=== PATIENT | female | born 1985 | race Two or more races ===

== ENCOUNTER 2016-08-11 12:25 | Outpatient (CLI) | payer MEDICARE, OTHER ==
[~2016-08-11 12:25] MED LIST: AMIODARONE HCL100 MG ORAL; ASPIR 8181 MG ORAL; DIGOXIN ELIX0.125 MG PO; IBUPROFEN600 MG ORAL; METOPROLOL TAR100 M1 ORAL; NORCO 5-325 TA1 EACH ORAL
[2016-08-11 13:02] LABS: EOSINOPHILS % (AUTO) 0.9 % (0.0-3.0); LYMPHOCYTES % (AUTO) 27.2 % (20.0-45.0); MEAN CORPUSCULAR HEMOGLOBIN 28.2 PG (27.0-31.0); MEAN CORPUSCULAR HGB CONC 31.6 G/DL (32.0-36.0); MEAN CORPUSCULAR VOLUME 89 FL (80-99); MEAN PLATELET VOLUME 10.1 FL (6.5-10.1); MONOCYTES % (AUTO) 6.7 % (1.0-10.0); NEUTROPHILS % (AUTO) 64.3 % (45.0-75.0); PLATELET COUNT 263 K/UL (150-450); RED BLOOD COUNT 4.47 M/UL (4.20-5.40); RED CELL DISTRIBUTION WIDTH 13.2 % (11.6-14.8); WHITE BLOOD COUNT 5.6 K/UL (4.8-10.8)
[2016-08-11 13:22] LABS: ALANINE AMINOTRANSFERASE 22 U/L (3-33); ANION GAP 14 (5-15); ASPARTATE AMINO TRANSFERASE 18 U/L (5-40); CALCIUM 9.3 mg/dL (8.6-10.2); CARBON DIOXIDE 22 mEQ/L (20-30); CHLORIDE 101 mEQ/L (98-107); CHOLESTEROL 160 mg/dL (< 200); CHOLESTEROL/HDL RATIO 4.6 (3.3-4.4); CREATININE 0.7 mg/dL (0.5-0.9); GLOMERULAR FILTRATION RATE > 60 mL/min (>60); HEMOLYSIS 1; LDL CHOLESTEROL (CALC.) 91 mg/dL (60-99); MAGNESIUM 1.7 mg/dL (1.7-2.5); PHOSPHORUS 3.2 mg/dL (2.5-4.8); POTASSIUM 4.5 mEQ/L (3.4-4.9); SODIUM 137 mEQ/L (135-145); TOTAL PROTEIN 7.2 g/dL (6.6-8.7)
== END 2016-08-11 13:15 | disposition home or self-care (01) ==
LOC: LAB 12:25
DX: G47.33 Obstructive sleep apnea (adult) (pediatric) (principal); E66.9 Obesity, unspecified; E03.9 Hypothyroidism, unspecified; I49.9 Cardiac arrhythmia, unspecified
CPT/HCPCS: 36415; 80053; 80061; 82306; 82607; 82746; 83735; 84100; 84436; 84443; 84480; 85025

== ENCOUNTER 2017-01-19 15:48 | Outpatient (CLI) | payer MEDICARE, OTHER ==
[2017-01-19 16:22] LABS: BASOPHILS % (AUTO) 1.2 % (0.0-2.0); EOSINOPHILS % (AUTO) 1.1 % (0.0-3.0); LYMPHOCYTES % (AUTO) 36.4 % (20.0-45.0); MEAN CORPUSCULAR HEMOGLOBIN 29.3 PG (27.0-31.0); MEAN CORPUSCULAR HGB CONC 32.1 G/DL (32.0-36.0); MEAN CORPUSCULAR VOLUME 92 FL (80-99); MEAN PLATELET VOLUME 8.2 FL (6.5-10.1); MONOCYTES % (AUTO) 7.1 % (1.0-10.0); NEUTROPHILS % (AUTO) 54.2 % (45.0-75.0); PLATELET COUNT 231 K/UL (150-450); RED BLOOD COUNT 4.11 M/UL (4.20-5.40); RED CELL DISTRIBUTION WIDTH 12.3 % (11.6-14.8); WHITE BLOOD COUNT 6.8 K/UL (4.8-10.8)
[2017-01-19 16:39] LABS: ALANINE AMINOTRANSFERASE 33 U/L (12-78); ALBUMIN/GLOBULIN RATIO 0.8 (1.0-2.7); ANION GAP 7 mmol/L (5-15); ASPARTATE AMINO TRANSFERASE 20 U/L (15-37); CALCIUM 9.2 MG/DL (8.5-10.1); CARBON DIOXIDE 24 MMOL/L (21-32); CHLORIDE 106 MMOL/L (98-107); GLOMERULAR FILTRATION RATE > 60 mL/min (>60); POTASSIUM 4.4 MMOL/L (3.5-5.1); SODIUM 137 MMOL/L (136-145); TOTAL PROTEIN 7.9 G/DL (6.4-8.2)
[2017-01-19 16:40] LABS: INR 0.9 (0.9-1.1); PROTHROMBIN TIME 9.6 SEC (9.30-11.50)
== END 2017-01-19 17:48 | disposition home or self-care (01) ==
LOC: LAB 15:48
DX: E78.2 Mixed hyperlipidemia (principal)
CPT/HCPCS: 36415; 80053; 85025; 85610; 85730

== ENCOUNTER 2017-03-16 15:16 | Emergency (ER) | payer MEDICARE, OTHER ==
[~2017-03-16] VITALS: Ht 167.6 cm; Wt 81.6 kg
[2017-03-16 15:20] VITALS: BP 149/86
[2017-03-16] MEDS ORDERED: traMADol 50mg tab ORAL ONE (15:30)
[2017-03-16] MEDS ORDERED: TYLENOL EXTRA500 MG ORAL (16:19)
[2017-03-16 16:28] VITALS: BP 124/77
--- NOTE | 2017-03-16 17:18 | Diagnostic Imaging Report ---
Indication: PAIN Technique: 3 views of the left knee Comparison: None Findings:Fractures. No dislocations. There are small medial compartmental osteophytes. Joint spaces are preserved. No suprapatellar effusion Impression:No acute process
--- NOTE | 2017-03-16 17:19 | Diagnostic Imaging Report ---
Indication: PAIN Technique: 3 views of the left shoulder Comparison: 01/27/2011 Findings: There is a pacemaker in place. No acute fractures. No dislocations. The joint spaces are preserved. Findings are unchanged Impression:No acute process
--- NOTE | 2017-03-16 21:29 | Emergency Room Report ---
History of Present Illness General Chief Complaint: Upper Extremity Injury Source: Patient, Family Member, Caregiver Present Illness HPI The patient is a 31-year-old female presenting with mother for pain after falling today. Patient has developmental delay and is unable to provide information. The mother states that the patient tripped on an elevated format and fell onto the left shoulder and left knee. She denies that she hit her head or had loss of consciousness. She denies any other injury for the patient or symptoms Allergies: Coded Allergies: AMOXICILLIN (Unverified Allergy, Unknown, 10/16/13) IODINE (Unverified Allergy, Unknown, 03/16/17) Patient History Past Medical History: see triage record Pertinent Family History: none Last Menstrual Period: One week ago Now: No Reviewed Nursing Documentation: PMH: Agreed, PSxH: Agreed Nursing Documentation-PMH Hx Cardiac Problems: Yes - arrythmia Hx Hypertension: Yes Hx Pacemaker: Yes Hx Cancer: No Hx Gastrointestinal Problems: No Review of Systems All Other Systems: negative except mentioned in HPI Physical Exam Vital Signs Date Time Temp Pulse Resp B/P (MAP) Pulse Ox O2 Delivery O2 Flow Rate FiO2 03/16/17 15:13 97.7 88 18 149/86 99 Room Air Sp02 EP Interpretation: reviewed, normal General Appearance: no apparent distress, alert, GCS 15, non-toxic Head: normocephalic, atraumatic Eyes: bilateral eye normal inspection, bilateral eye PERRL Neck: normal inspection, full range of motion, no bony tend Musculoskeletal: normal inspection, normal range of motion, tender - L anterior knee. L anterior deltoid Neurologic: alert, responsive, motor strength/tone normal, sensory intact Psychiatric: mood/affect normal Skin: other - eecchymosis L knee Medical Decision Making PA Attestation Dr. Fierro is my supervising physician. Patient management was discussed with my supervising physician Diagnostic Impression: Primary Impression: Knee pain, left Qualified Codes: M25.562 - Pain in left knee Additional Impression: Shoulder pain, left Qualified Codes: M25.512 - Pain in left shoulder ER Course The patient is a 31-year-old female presenting with mother for pain after falling today Ddx considered include but not limited to sprain/strain, fracture, contusion Physical exam: No apparent distress Left knee: There is slight ecchymosis to the anterior aspect. Tenderness to palpation over the patella. No deformity. Normal gait. Full active range of motion intact. Left shoulder: Full AROM intact. No ecchymosis. TTP over anterior aspect X-ray of the left knee and left shoulder are both unremarkable. She'll be discharged with pain medication and will followup with her primary doctor. Other X-Ray Diagnostic Results Other X-Ray Diagnostic Results #1: X-Ray ordered: L shoulder # of Views/Limited Vs Complete: 3 View Indication: Pain EP Interpretation: Yes PA Xray: Interpretation reviewed, by supervising MD, and agrees with findings. Interpretation: no dislocation, no soft tissue swelling, no fractures Impression: No acute disease Electronically Signed by: Eloy Cisneros PA-C Other X-Ray Diagnostic Results #2: X-Ray ordered: L knee # of Views/Limited Vs Complete: 3 View Indication: Pain EP Interpretation: Yes PA Xray: Interpretation reviewed, by supervising MD, and agrees with findings. Interpretation: no dislocation, no soft tissue swelling, no fractures Impression: No acute disease Electronically Signed by: Eloy Cisneros PA-C Last Vital Signs Date Time Temp Pulse Resp B/P (MAP) Pulse Ox O2 Delivery O2 Flow Rate FiO2 03/16/17 16:28 74 18 124/77 99 Room Air 03/16/17 15:20 97.7 Status: improved Disposition: HOME, SELF-CARE Condition: Improved Scripts Acetaminophen* (TYLENOL EXTRA STRENGTH*) 500 Mg Tablet 500 MG ORAL Q8H Y for Prn Headache/Temp > 101, #30 TAB 0 Refills Prov: ELOY CISNEROS 03/16/17 Patient Instructions: Muscle Pain, Adult, RICE for Routine Care of Injuries Additional Instructions: I discussed my findings with the patient. All questions and concerns have been answered. Treatment and medication compliance have been addressed. I advised the patient that they need to follow up with PMD in 3-5 days. Return to ED if pain remains or worsens, numbness or tingling occurs, new rash is noticed, fever is noticed, or if needed for any reason. Patient verbalized understanding of discharge instructions. ELOY CISNEROS Mar 16, 2017 21:29
== END 2017-03-16 16:27 | disposition home or self-care (01) ==
LOC: EDBD 15:16 → EMR 15:42
DX: M25.562 Pain in left knee (principal); M25.512 Pain in left shoulder; I10 Essential (primary) hypertension; I49.9 Cardiac arrhythmia, unspecified; Z95.0 Presence of cardiac pacemaker; Z88.1 Allergy status to other antibiotic agents; Z91.041 Radiographic dye allergy status
CPT/HCPCS: 99284

== ENCOUNTER 2018-07-20 09:55 | Outpatient (CLI) | payer MEDICARE, OTHER ==
[~2018-07-20 09:55] MED LIST changes: +TYLENOL EXTRA500 MG ORAL
[2018-07-20 10:31] LABS: BASOPHILS % (AUTO) 0.7 % (0.0-2.0); EOSINOPHILS % (AUTO) 1.3 % (0.0-3.0); HEMATOCRIT 40.1 % (37.0-47.0); HEMOGLOBIN 13.3 G/DL (12.0-16.0); LYMPHOCYTES % (AUTO) 23.4 % (20.0-45.0); MEAN CORPUSCULAR VOLUME 88 FL (80-99); MONOCYTES % (AUTO) 5.1 % (1.0-10.0); NEUTROPHILS % (AUTO) 69.5 % (45.0-75.0); PLATELET COUNT 242 K/UL (150-450); RED BLOOD COUNT 4.55 M/UL (4.20-5.40); RED CELL DISTRIBUTION WIDTH 12.9 % (11.6-14.8); WHITE BLOOD COUNT 8.4 K/UL (4.8-10.8)
[2018-07-20 10:55] LABS: ALANINE AMINOTRANSFERASE 43 U/L (12-78); ALBUMIN 3.7 G/DL (3.4-5.0); ALBUMIN/GLOBULIN RATIO 0.8 (1.0-2.7); ALKALINE PHOSPHATASE 89 U/L (46-116); ANION GAP 10 mmol/L (5-15); ASPARTATE AMINO TRANSFERASE 21 U/L (15-37); BILIRUBIN,TOTAL 0.4 MG/DL (0.2-1.0); BLOOD UREA NITROGEN 12 mg/dL (7-18); CALCIUM 9.7 MG/DL (8.5-10.1); CARBON DIOXIDE 26 MMOL/L (21-32); CHLORIDE 103 MMOL/L (98-107); CHOLESTEROL 173 MG/DL (< 200); CREATININE 0.7 MG/DL (0.55-1.30); HDL CHOLESTEROL 31 MG/DL (40-60); PHOSPHORUS 3.2 MG/DL (2.5-4.9); POTASSIUM 3.8 MMOL/L (3.5-5.1); SODIUM 138 MMOL/L (136-145); TRIGLYCERIDES 207 MG/DL (30-150)
== END 2018-07-20 11:55 | disposition home or self-care (01) ==
LOC: LAB 09:55
DX: G80.9 Cerebral palsy, unspecified (principal); Z83.3 Family history of diabetes mellitus; E66.9 Obesity, unspecified; I49.5 Sick sinus syndrome; Z95.0 Presence of cardiac pacemaker; Z88.0 Allergy status to penicillin; Z91.041 Radiographic dye allergy status
CPT/HCPCS: 36415; 80053; 80061; 80162; 82306; 82607; 82747; 83036; 83735; 84100; 84443; 85025

== ENCOUNTER 2019-05-07 17:09 | Emergency (ER) | payer MEDICARE, OTHER ==
[~2019-05-07] VITALS: Ht 165.1 cm; Wt 81.6 kg
[2019-05-07 17:50] VITALS: BP 114/57
--- NOTE | 2019-05-07 17:50 | NUR ---
ED Nurse Note: Pt brought into ED w/ laceration upper L forehead. Pt fell approximately 1700 and hit the head on a table. Pt has a pacemaker L chest. Pt also has mental retardation. She is alert and orientedx4, amblatory, family is at bedside. Pt is set up on monitor.
[2019-05-07] MEDS ORDERED: Acetaminophen 500mg (ES) tab ORAL ONE (18:00)
--- NOTE | 2019-05-07 18:16 | Emergency Room Report ---
History of Present Illness General Chief Complaint: Head Injury Source: Patient, Family Member Present Illness HPI Patient presents with trauma to the left side of the forehead Patient was reported to have tripped over a dresser and fell to the ground on the left side Denies any lapse of consciousness she does have 10 out of 10 pain Denies any visual change denies any neck pain denies any focal weakness Denies any vomiting or diarrhea Allergies: Coded Allergies: AMOXICILLIN (Unverified Allergy, Unknown, 10/16/13) IODINE (Unverified Allergy, Unknown, 03/16/17) Patient History Past Medical History: see triage record Last Menstrual Period: 04/25/2019 Now: No : 0 Para: 0 Reviewed Nursing Documentation: PMH: Agreed; PSxH: Agreed Nursing Documentation-PMH Hx Cardiac Problems: Yes - arrythmia Hx Hypertension: Yes Hx Pacemaker: Yes Hx Cancer: No Hx Gastrointestinal Problems: No Review of Systems All Other Systems: negative except mentioned in HPI Physical Exam Vital Signs Date Time Temp Pulse Resp B/P (MAP) Pulse Ox O2 Delivery O2 Flow Rate FiO2 05/07/19 17:37 98.1 74 18 116/59 (78) 94 Room Air Sp02 EP Interpretation: reviewed, normal General Appearance: well appearing, mild distress - Uncomfortable with pain to the left forehead Head: other - 3 x 2 cm hematoma left forehead small associated 1 cm laceration Eyes: bilateral eye PERRL ENT: hearing grossly normal, EOM grossly intact Neck: supple, no bony tend Respiratory: lungs clear, no respiratory distress, no retraction Cardiovascular #1: regular rate, rhythm Gastrointestinal: non tender, soft Genitourinary: no CVA tenderness Musculoskeletal: normal inspection Neurologic: alert, oriented x3 Psychiatric: anxious Skin: other - As above with associated hematoma left temporal forehead area Lymphatic: no adenopathy Procedures Laceration/Wound Repair Laceration/Wound Repair : Consent: Verbal Wound Location: head Wound's Depth, Shape: superficial Wound Length (cm): 1 Wound Explored: clean Betadine Prep?: Yes Wound Repaired With: Dermabond Layer Closure?: No Patient Tolerated: Well Complications: None Progress The area appears fairly well approximated and at this time Dermabond was used for closure with appropriate approximation Medical Decision Making Diagnostic Impression: Primary Impression: Acute head injury ER Course Given the history and presentation given the trauma patient had CT imaging obtained No obvious acute process is seen patient does have some developmental delay which makes Some of the exam difficult with multiple repeat attempts nevertheless the patient's mom is able to assist and Closure is made with Dermabond Patient tolerated well and will have close outpatient follow-up CT/MRI/US Diagnostic Results CT/MRI/US Diagnostic Results : Impression CT head no acute hemorrhage Last Vital Signs Date Time Temp Pulse Resp B/P (MAP) Pulse Ox O2 Delivery O2 Flow Rate FiO2 05/07/19 17:37 98.1 74 18 116/59 (78) 94 Room Air Status: improved Disposition: HOME, SELF-CARE Condition: Improved Scripts Ibuprofen* (MOTRIN*) 600 Mg Tablet 600 MG ORAL Q8H PRN for For Pain, #20 TAB 0 Refills Prov: Gary Gibbons DO 05/07/19 Additional Instructions: Patient is provided with the discharge instructions notified to follow up with primary doctor in the next 2-3 days otherwise return to the er with any worsening symptoms. Please note that this report is being documented using DRAGON technology. This can lead to erroneous entry secondary to incorrect interpretation by the dictating instrument. Gary Gibbons DO May 07, 2019 18:16
--- NOTE | 2019-05-07 18:40 | Diagnostic Imaging Report ---
EXAM: CT Head Without Intravenous Contrast CLINICAL HISTORY: TRAUMA TECHNIQUE: Axial computed tomography images of the head/brain without intravenous contrast. CTDI is 240 mGy and DLP is 3494.8 mGy-cm. One or more of the following dose reduction techniques were used: automated exposure control, adjustment of the mA and/or kV according to patient size, use of iterative reconstruction technique. COMPARISON: No relevant prior studies available. FINDINGS: Limitations: Limited by motion. Brain: No gross intracranial hemorrhage. Ventricles: No ventriculomegaly. Bones/joints: No obvious fracture. Soft tissues: Unremarkable. Sinuses: No acute sinusitis. Mastoid air cells: No mastoid effusion. Other findings: No computer game designer image. IMPRESSION: Motion. No gross intracranial hemorrhage. No obvious skull fracture.
--- NOTE | 2019-05-07 19:10 | NUR ---
ED Nurse Note: Received report from Gely SALGUERO. Pt alert and oriented, verbally responsive. Not in any distress. Mother at bedside.
[2019-05-07] MEDS ORDERED: IBUPROFEN600 MG ORAL (19:14)
[2019-05-07 19:36] VITALS: BP 118/70
--- NOTE | 2019-05-07 19:36 | NUR ---
ED Nurse Note: Pt cleared by ERMD for discharge. DC instructions/prescription was given and explained to pt and parent verbalized understanding of teachings. All medical deviecs such as ID band removed. Pt is AAO x4, ambulatory and left with all personal belongings. Accompanied home by her mother.
== END 2019-05-07 19:36 | disposition home or self-care (01) ==
LOC: EMR 18:00
DX: S09.90XA Unspecified injury of head, initial encounter (principal); W01.0XXA Fall on same level from slipping, tripping and stumbling without subsequent striking against object, initial encounter; Y92.9 Unspecified place or not applicable; Z88.0 Allergy status to penicillin; Z91.041 Radiographic dye allergy status; I10 Essential (primary) hypertension; Z95.0 Presence of cardiac pacemaker
CPT/HCPCS: 70450; 99284

== ENCOUNTER → 2020-01-09 | Outpatient (CLI) | payer MEDICARE, OTHER ==
[2020-01-09 13:09] LABS: BASOPHILS % (AUTO) 1.3 % (0.0-2.0); EOSINOPHILS % (AUTO) 0.3 % (0.0-3.0); HEMATOCRIT 36.6 % (37.0-47.0); HEMOGLOBIN 12.6 G/DL (12.0-16.0); MEAN CORPUSCULAR VOLUME 88 FL (80-99); MONOCYTES % (AUTO) 5.8 % (1.0-10.0); NEUTROPHILS % (AUTO) 66.6 % (45.0-75.0); PLATELET COUNT 241 K/UL (150-450); RED BLOOD COUNT 4.16 M/UL (4.20-5.40); RED CELL DISTRIBUTION WIDTH 12.5 % (11.6-14.8); WHITE BLOOD COUNT 8.1 K/UL (4.8-10.8)
[2020-01-09 13:47] LABS: ALANINE AMINOTRANSFERASE 36 U/L (12-78); ALBUMIN 3.4 G/DL (3.4-5.0); ALBUMIN/GLOBULIN RATIO 0.8 (1.0-2.7); ALKALINE PHOSPHATASE 63 U/L (46-116); ANION GAP 7 mmol/L (5-15); ASPARTATE AMINO TRANSFERASE 16 U/L (15-37); BILIRUBIN,TOTAL 0.3 MG/DL (0.2-1.0); BLOOD UREA NITROGEN 15 mg/dL (7-18); CALCIUM 9.4 MG/DL (8.5-10.1); CARBON DIOXIDE 23 MMOL/L (21-32); CHLORIDE 109 MMOL/L (98-107); CHOLESTEROL 154 MG/DL (< 200); CREATININE 0.8 MG/DL (0.55-1.30); HDL CHOLESTEROL 32 MG/DL (40-60); PHOSPHORUS 3.1 MG/DL (2.5-4.9); POTASSIUM 4.3 MMOL/L (3.5-5.1); SODIUM 139 MMOL/L (136-145); TRIGLYCERIDES 257 MG/DL (30-150)
== END | disposition home or self-care (01) ==
LOC: LAB 12:29
DX: I48.91 Unspecified atrial fibrillation (principal); Z95.810 Presence of automatic (implantable) cardiac defibrillator; E66.9 Obesity, unspecified; Z83.3 Family history of diabetes mellitus; Z82.49 Family history of ischemic heart disease and other diseases of the circulatory system
CPT/HCPCS: 36415; 80053; 80061; 80162; 82306; 82607; 82746; 83036; 83735; 84100; 84443; 85025